=== PATIENT | male | born 1975 | race Two or more races ===

== ENCOUNTER 2016-08-23 18:46 | Emergency (ER) | payer SELFPAY ==
[~2016-08-23] VITALS: Ht 162.6 cm; Wt 52.6 kg
--- NOTE | 2016-08-23 19:04 | Emergency Room Report ---
History of Present Illness General Chief Complaint: Eye Problems Source: Patient Present Illness HPI 41YOM with left eyelid swelling, pus drainage since last night. Denies injury, FB to eye. Denies pain with eye movement. Wears contacts. Denies headache, neck pain/stiffness, fever/chills. Patient History Past Medical History: none Past Surgical History: none Pertinent Family History: none Social History: Denies: alcohol use, drug use, smoking Immunizations: UTD Reviewed Nursing Documentation: PMH: Agreed, PSxH: Agreed Nursing Documentation-PMH Past Medical History: No Stated History Review of Systems All Other Systems: negative except mentioned in HPI Physical Exam Vital Signs Date Time Temp Pulse Resp B/P Pulse Ox O2 Delivery O2 Flow Rate FiO2 08/23/16 18:58 98.4 104 16 113/65 98 Room Air Sp02 EP Interpretation: reviewed, normal General Appearance: normal inspection, well appearing, no apparent distress, alert Head: normocephalic, atraumatic Eyes: bilateral eye other - left eye: Significant thick pus drainage soaking eyelid together. Injected conjunctiva. Swollen upper/lower eyelid. EOMI. 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 tested Psychiatric: normal inspection Skin: normal inspection Lymphatic: normal inspection Medical Decision Making Diagnostic Impression: Primary Impression: Conjunctivitis Qualified Codes: H10.32 - Unspecified acute conjunctivitis, left eye Additional Impression: Periorbital cellulitis of left eye ER Course 41YOM contacts wearer with acute bacterial left conjunctivitis Also associated pre-septal cellulitis Low suspicion for orbital cellulitis given afebrile, no systemic systems, no headache, and short onset of symptoms Will Tx also for pre-septal cellulitis with Keflex Rx Topical oflox for pseudomonas coverage for contacts Patient verbalized understanding to return to ER for worsening symptoms, pain with EOM, fever/chills Advised to NOT use contacts until 24 hours after symptoms resolve Last Vital Signs Date Time Temp Pulse Resp B/P Pulse Ox O2 Delivery O2 Flow Rate FiO2 08/23/16 18:58 98.4 104 16 113/65 98 Room Air Status: improved Disposition: HOME, SELF-CARE Scripts Ofloxacin (OFLOXACIN) 5 Ml Drops 2 DROP OT EVERY 4 HOURS for 7 Days, #1 UNIT Prov: MAGALIE PRICE M.D. 08/23/16 Cephalexin* (KEFLEX*) 500 Mg Capsule 500 MG ORAL Q6H for 10 Days, #40 CAP 0 Refills Prov: MAGALIE PRICE M.D. 08/23/16 MAGALIE PRICE M.D. August 23, 2016 19:04
[2016-08-23] MEDS ORDERED: OFLOXACIN5 ML OT (19:14)
[2016-08-23] MEDS ORDERED: KEFLEX500 MG ORAL (19:14)
[2016-08-23 19:18] VITALS: BP 113/65
== END 2016-08-23 19:25 | disposition home or self-care (01) ==
LOC: EMR 19:23
DX: H10.32 Unspecified acute conjunctivitis, left eye (principal); L03.213 Periorbital cellulitis
CPT/HCPCS: 99284